=== PATIENT | female | born 1945 | race Caucasian/White ===

== ENCOUNTER → 2021-02-04 | Outpatient (CLI) | payer MEDICARE, OTHER ==
[~2021-02-04] MED LIST: HYDROCHLOROTH12.5 MG PO; LISINOPRIL10 MG PO; OXYBUTYNIN CHLOR5 M1 PO; WOMEN'S 50 PLU1 EACH PO
[2021-02-04 12:13] LABS: RED BLOOD COUNT 3.79 M/UL (4.00-5.10); WHITE BLOOD COUNT 7.1 K/UL (4.5-11.0)
[2021-02-04 12:35] LABS: BUN/CREATININE RATIO 28 (0-10)
== END ==
LOC: OPSV2 10:30
PROVIDERS: Orthopaedic Surgery
DX: Z01.818 Encounter for other preprocedural examination (principal); M17.12 Unilateral primary osteoarthritis, left knee; Z20.822 Contact with and (suspected) exposure to COVID-19
CPT/HCPCS: 71046; 80048; 81001; 85027; 87077; 87081; 87086; 87186; 93005